=== PATIENT | male | born 1965 | race Caucasian/White ===

== ENCOUNTER 2017-11-17 07:36 | Day surgery (SDC) | payer BC ==
[2017-11-15 10:59] VITALS: BMI 30.6
[~2017-11-17 07:36] MED LIST: LACTATED RINGERS 1,000 ML IV SCH
[2017-11-17 08:07] VITALS: RESP 16; TEMP 98.3
[2017-11-17] MEDS ORDERED: PROPOFOL 10 MG/ML 20 ML VIAL IV ONE (08:09)
[2017-11-17] MEDS ORDERED: LIDOCAINE 1% 20 ML VIAL (10MG/ML) FOR IV START INTRADERMA ONE (08:10)
[2017-11-17] MEDS ORDERED: LACTATED RINGERS 1,000 ML IV ONE (08:10)
--- NOTE | 2017-11-17 08:30 | P.PCN ---
Date of Procedure: 11/17/17 Procedure(s) Performed: BRIEF HISTORY: Patient is a 52-year-old pleasant white male, scheduled for an elective colonoscopy as a part of evaluation of chronic diarrhea and lower abdominal pain for the last 1 month duration. He was treated with antibiotics for possible acute diverticulitis for a week and the diarrhea resolved. However continued to have persistent cramping in the lower abdominal area and hence he is scheduled for colonoscopy to evaluate further. PROCEDURE PERFORMED: Colonoscopy with random biopsies. PREOPERATIVE DIAGNOSIS: Lower abdominal pain/diarrhea of 4 months duration. IV sedation per Anesthesia. PROCEDURE: After informed consent was obtained, the patient, was brought into the endoscopy unit. IV sedation was administered by Anesthesia under continuous monitoring. Digital rectal examination was normal. Initially the Olympus CF- 160 flexible video colonoscope was then inserted in the rectum, gradually advanced into the cecum without any difficulty. Careful examination was performed as the scope was gradually being withdrawn. Ileocecal valve and the appendiceal orifice were visualized and appeared normal. Prep was excellent. Mucosa of the cecum, ascending colon, transverse colon, descending colon, sigmoid colon, and rectum appeared normal. Random biopsies were done from ascending and descending colon to rule out metastatic/plan for colitis. Retroflexion was performed in the rectum and no lesions were seen. The patient tolerated the procedure well. IMPRESSION: Normal-appearing colon from rectum to cecum with no evidence of colitis or colorectal neoplasia . RECOMMENDATIONS: Findings of this examination were discussed with the patient well as her family. He was advised to follow with the biopsy results. He was given a prescription for Bentyl 10 mg 3 times daily as needed for abdominal cramping and was advised to follow up in office in 3-4 weeks..
[2017-11-17 09:11] VITALS: BP 116/76; PULSE 54
== END 2017-11-17 09:40 | disposition home or self-care (01) ==
LOC: ORWHC2ENDO 07:36
PROVIDERS: ATTEND Internal Medicine Gastroenterology
DX: K52.9 Noninfective gastroenteritis and colitis, unspecified (principal); I25.10 Atherosclerotic heart disease of native coronary artery without angina pectoris; I10 Essential (primary) hypertension; E78.5 Hyperlipidemia, unspecified; K21.9 Gastro-esophageal reflux disease without esophagitis; Z79.02 Long term (current) use of antithrombotics/antiplatelets; Z79.1 Long term (current) use of non-steroidal anti-inflammatories (NSAID); Z95.5 Presence of coronary angioplasty implant and graft; Z79.899 Other long term (current) drug therapy; Z79.82 Long term (current) use of aspirin
CPT/HCPCS: 88305; 45380; J2704

== ENCOUNTER → 2019-07-17 | Outpatient (CLI) | payer BC ==
[2019-07-17 15:16] LABS: HCT 54.8 % (39.0-53.0); HGB 17.7 gm/dL (13.0-17.5); MCH 29.2 pg (25.0-35.0); MCHC 32.3 g/dL (31.0-37.0); MCV 90.5 fL (80.0-100.0); Platelet Count 278 k/uL (150-450); RBC 6.05 m/uL (4.30-5.90); RDW 13.4 % (11.5-15.5); WBC 8.5 k/uL (3.8-10.6)
[2019-07-17 15:38] LABS: African American GFR (CKD) >90 (>60 ml/min/1.73 sqM); Anion Gap 7 mmol/L; Blood Urea Nitrogen 19 mg/dL (9-20); Carbon Dioxide 29 mmol/L (22-30); Chloride 102 mmol/L (98-107); Non-African American GFR(CKD) >90 (>60 ml/min/1.73 sqM); Potassium 3.7 mmol/L (3.5-5.1); Sodium 138 mmol/L (137-145)
== END | disposition home or self-care (01) ==
LOC: LABPAT 14:45
PROVIDERS: ATTEND Internal Medicine Interventional Cardiology
DX: Z01.818 Encounter for other preprocedural examination (principal); U07.1 COVID-19; I25.10 Atherosclerotic heart disease of native coronary artery without angina pectoris
CPT/HCPCS: 80051; 82565; 84520; 85027; 36415; U0003

== ENCOUNTER → 2019-07-20 | Day surgery (SDC) | payer BC ==
[2019-07-18 15:40] VITALS: BMI 34.3
[~2019-07-20] MED LIST changes: +ADENOSINE 180 MG in SODIUM CHLORIDE 0.9% 30 ML IVP ONE; +ALPRAZolam 0.25 MG TAB PO PRN; +ALPRAZolam 0.5 MG TAB PO PRN; +ASPIRIN 325 MG TAB PO STA; +ASPIRIN 81 MG PO SCH; +ATORVASTATIN 80 MG TAB PO SCH; +ATORVASTATIN 80 MG TAB PO STA; +HEPARIN SODIUM 1,000 UN/ML (10ML VL) IV ONE; +HYDROCHLOROTHIAZIDE 25 MG TAB PO SCH; +IOPAMIDOL-370 125ML BTL INJ ONE; -LACTATED RINGERS 1,000 ML IV SCH; +LIDOCAINE 1% INJ 10MG/ML (20 ML MDV) SQ ONE; +LISINOPRIL 20 MG TAB PO SCH; +LORATADINE 10 MG TAB PO PRN; +METOPROLOL TARTRATE 25 MG TAB PO SCH; +MIDAZOLAM 2 MG/2 ML VIAL IV ONE; +NITROGLYCERIN SL TABS 0.4 MG TAB SUBLINGUAL PRN; +PANTOPRAZOLE 40 MG TABLET PO SCH; +RX INFO: IV CONTRAST WAS GIVEN 1 EACH MISC MISCELLANE PRN; +SODIUM CHLORIDE 0.9% 1,000 ML IV SCH; +SODIUM CHLORIDE 0.9% 1,000 ML in EMPTY BAG 1 BAG IV ONE; +VERAPAMIL SYRINGE (5 MG/10 ML) INTRAARTER ONE; +amLODIPine 5 MG TAB PO SCH; +fentaNYL (PF) 50 MCG/ML 2 ML AMP IV ONE
[2019-07-20 11:49] VITALS: TEMP 98.5
[2019-07-20] MEDS: NITROGLYCERIN 1000MCG/10ML SYRINGE INTRACORON ONE ×2 (12:37→12:49)
[2019-07-20 14:09] VITALS: RESP 16
[2019-07-20 15:03] VITALS: BP 131/73; PULSE 68
--- NOTE | 2019-07-20 15:21 | CC ---
CARDIAC CATHETERIZATION REPORT Mr. Murry is a 53-year-old male with a known history of coronary artery disease, status post percutaneous revascularization who recently has been complaining of occasional episode of chest discomfort, underwent a myocardial perfusion imaging that showed evidence of inferior wall ischemia. In view of that, recommendation made regarding cardiac catheterization. The procedures, risks, and complication were discussed with the patient who is in full understanding and agreement. PROCEDURE: Patient was brought to cath lab radiology technician in a fasting semi-sedated state after receiving fentanyl and Benadryl and achieving moderate conscious sedated state. Using Xylocaine anesthesia and Seldinger technique, a 6-Micronesian sheath was introduced in the right radial artery. Selective right and left coronary angiography performed using 5-Micronesian 3.5 bend right and left Shin catheter, multiple views of the coronary artery including hemiaxial views obtained. Following that a 5-Micronesian tight pigtail catheter introduced into the left ventricle and left ventricular end-diastolic pressure was calculated. Following that, a 6-Micronesian FL 3.5 guiding catheter introduced into the system and a [employer] pressure wire was introduced and fractional flow reserve and IFR were calculated. Following that, catheter and sheath were removed. Hemostasis was obtained with deployment of a TR band. There was no immediate complication. Patient is returned to his room in stable condition. Of note, the patient received 5000 units of intravenous heparin as well as intra-arterial verapamil. FINDINGS: LEFT MAIN: This is a short size vessel, bifurcating into left circumflex, left anterior descending artery. Left main coronary artery has no evidence of high-grade stenosis. LEFT ANTERIOR DESCENDING ARTERY: This is a large-sized vessel, reaching toward the apex with a wraparound apex segment giving rise to a moderately-sized diagonal branch proximally. The proximal segment of the left and descending artery has a 50% plaque. The stented segment beyond that is wide open with no evidence of in-stent restenosis. There is diffuse intimal disease throughout the mid segment of the LAD of about 30%- 40%, LEFT CIRCUMFLEX: This is a nondominant vessel, large in caliber, giving rise to two obtuse marginal branch of large caliber. The left circumflex has diffuse intimal disease throughout its course. It is calcified yet plaque up to mid 30%. RIGHT CORONARY ARTERY: Tis is a large dominant vessel, bifurcating distally into PDA and posterolateral segment and branches. The right coronary artery stented segment is patent. There is no evidence of significant restenosis. There is diffuse intimal disease of 30% throughout the vessel. LEFT VENTRICULOGRAM: Left ventriculogram was not performed. HEMODYNAMICS: There was no gradient across the aortic valve, the left ventricular end- diastolic pressure was 14 to 16 mmHg. PHYSIOLOGICAL MEASUREMENT: IFR was 1.11 and the FFR was 1.0 after infusion of adenosine per protocol intravenously. IMPRESSION: 1. Moderate disease in the proximal left anterior descending artery. 2. Patent stent in the LAD and the right coronary artery. 3. Mild triple-vessel coronary artery disease. RECOMMENDATION: In view of the fraction flow reserve measurement, I would recommend medical therapy. Those findings and recommendation were discussed with the patient and his family who are in full understanding and agreement. MMODL / IJN: [id number] /
--- NOTE | 2019-07-20 15:28 | LTR ---
DATE OF SERVICE: 07/20/2019 RE: Tong Murry Dear Dr. Sierra; I had the pleasure to perform cardiac catheterization on Mr. Murry at [facility] on July 20, 2019 and a full coy of the procedure note will be forwarded to you. In brief, he was found to have patent stent to the LAD and to the right coronary artery with moderate disease in the proximal left anterior descending artery that has progressed compared to 2014 and based on those findings, I proceeded to perform fractional flow reserve that was consistent with nonhemodynamic significant lesion and based on this finding I recommend continue medical therapy with aggressive risk modification that has been initiated. Thank you again for allowing me to participate in this patient's care. Please feel free to call for any questions. Sincerely yours, MD DAYRON Patten / RADHA: [id number] /
== END | disposition home or self-care (01) ==
LOC: CATHCVL 11:11
PROVIDERS: ATTEND Internal Medicine Interventional Cardiology
DX: I25.10 Atherosclerotic heart disease of native coronary artery without angina pectoris (principal); R94.39 Abnormal result of other cardiovascular function study; R07.89 Other chest pain; R06.09 Other forms of dyspnea; R60.9 Edema, unspecified; E78.2 Mixed hyperlipidemia; I10 Essential (primary) hypertension; E78.00 Pure hypercholesterolemia, unspecified; R01.1 Cardiac murmur, unspecified; Z79.891 Long term (current) use of opiate analgesic; Z79.1 Long term (current) use of non-steroidal anti-inflammatories (NSAID); Z79.899 Other long term (current) drug therapy; Z79.82 Long term (current) use of aspirin; Z79.02 Long term (current) use of antithrombotics/antiplatelets; Z79.890 Hormone replacement therapy; Z95.5 Presence of coronary angioplasty implant and graft; Z98.890 Other specified postprocedural states; M19.90 Unspecified osteoarthritis, unspecified site; Z87.891 Personal history of nicotine dependence; Z82.49 Family history of ischemic heart disease and other diseases of the circulatory system
CPT/HCPCS: 93571; 93458; C1769 ×2; C1887; C1894; J2250; J2001; J3010; J1644; J0153; Q9967

== ENCOUNTER 2020-01-01 16:08 | Emergency (ER) | payer BC, OTHER ==
[2020-01-01 16:26] VITALS: BP 145/94; PULSE 78; RESP 18; TEMP 98.2
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
--- NOTE | 2020-01-01 17:33 | XR ---
Result: History: Pain. Comparison: None available. Technique: 3 views of the right knee. Findings: No acute fracture or dislocation is seen. The visualized osseous structures are in anatomic alignmen t. There are moderate tricompartmental degenerative changes. Moderate patellar enthesopathy is seen. There is no significant knee joint effusion. Impression: No acute osseous abnormality.
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
== END 2020-01-01 18:38 | disposition home or self-care (01) ==
LOC: EC 16:08
DX: S16.1XXA Strain of muscle, fascia and tendon at neck level, initial encounter (principal); I10 Essential (primary) hypertension; I25.10 Atherosclerotic heart disease of native coronary artery without angina pectoris; K21.9 Gastro-esophageal reflux disease without esophagitis; E78.5 Hyperlipidemia, unspecified; G89.4 Chronic pain syndrome; Z79.890 Hormone replacement therapy; Z79.82 Long term (current) use of aspirin; Z79.1 Long term (current) use of non-steroidal anti-inflammatories (NSAID); Z79.899 Other long term (current) drug therapy; Z98.890 Other specified postprocedural states; V40.5XXA Car driver injured in collision with pedestrian or animal in traffic accident, initial encounter; Y92.410 Unspecified street and highway as the place of occurrence of the external cause
CPT/HCPCS: 70450; 72125; 99284

== ENCOUNTER → 2020-10-16 | Outpatient (CLI) | payer BC ==
--- NOTE | 2020-10-16 22:38 | CONS ---
CONSULTATION DATE OF SERVICE: 10/16/2020 This 54-year-old gentleman has been evaluated in Sleep Center for possible obstructive sleep apnea-hypopnea syndrome. HISTORY OF PRESENT ILLNESS/SLEEP-WAKE EVALUATION: The patient's usual sleep schedule is from 9:30 p.m. until 5:20 a.m. on weekdays and from 10 p.m. to 7 a.m. on weekends. Usually no significant problems with falling asleep. No TV in bedroom. He sleeps only on the side position because of the pain in his back on the back position. He does snore, and his believes that he stops breathing during sleep. He wakes up from sleep 4 times with nocturia. In the morning he wakes up tired. Usually, though, he does not take naps, but [place] Sleepiness Scale increased to 11. No history of hypnagogic hallucinations, sleep paralysis or cataplexy. PAST MEDICAL HISTORY: Positive for coronary artery disease, hypertension, cystic acne, hyperlipidemia, back problem with herniated disc. PAST SURGICAL HISTORY: Right knee surgery, two stent insertions to coronary arteries. MEDICATIONS: 1. Celebrex 200 mg twice a day. 2. Hydrochlorothiazide 25 mg once a day. 3. Metoprolol 25 mg twice a day. 4. Minocycline 100 mg once a day. 5. Crestor 40 mg once a day. 6. Lisinopril 20 mg twice a day. 7. Aspirin 81 mg once a day. 8. Amlodipine 5 mg once a day. 9. Percocet 10 mg up to 4 times a day. SOCIAL HISTORY: Positive for smoking in the past; quit 27 years ago. Alcohol consumption: None. FAMILY HISTORY: Stroke and cancer. REVIEW OF SYSTEMS: No fevers. No double vision. No recent chest pain. No shortness of breath. No abdominal pain. No bleeding episodes. No blood in the urine. No seizure episodes. Multiple awakenings from sleep. PHYSICAL EXAMINATION: GENERAL: Pleasant gentleman without distress. VITAL SIGNS: BP 134/83, HR 58, RR 16, height 6 feet 3 inches, weight 257.0, body mass index 32.2, temperature 97.5, oxygen saturation at room air 98%. HEENT: PERRLA, EOMI, evaluation of oropharynx showed tongue protrudes midline. Low position of soft palate; Mallampati IV. NECK: Supple, no JVD. Thyroid is not palpable. Neck is wide; 18 inches in circumference. LUNGS: Clear to percussion and to auscultation. Good air exchange. No wheezing or rhonchi. HEART: S1, S2 regular. No murmurs, gallops, or rubs. ABDOMEN: Soft and nontender. Bowel sounds are present. No organomegaly appreciated. EXTREMITIES: No clubbing or cyanosis. INSURANCE EXAMINING CLERK: Awake, alert, and oriented X3. Cranial nerves 2 to 7 intact. There is no fasciculation or atrophy. noted. No focal deficits observed. IMPRESSION: 1. Snoring, possibly witnessed episodes of stopped breathing during sleep, extremely low position of soft palate, Mallampati IV, wide neck; obstructive sleep apnea- hypopnea syndrome. 2. Erythrocytosis, according to patient. 3. Coronary artery disease, status post two stent insertions. 4. Hypertension. 5. History of cystic acne. 6. Hyperlipidemia. 7. Back problems secondary to herniated disc with pain. 8. Status post right knee surgery. 9. Obesity with body mass index 32.2. PLAN: 1. We will start with a home sleep apnea test for evaluation of patient's breathing during sleep. 2. Following plan after reviewing results of sleep study. If any central sleep apnea is present, CPAP/BiPAP titration will be necessary. 3. Watching and losing weight. 4. Sleep hygiene with regular time in bed for at least 8 hours. 5. No driving if feeling sleepiness. Thank you very much for referring this patient for consultation. Sincerely, Andriy Manzano MD, PhD, FAASM Diplomat of [place] [employer] Sleep Medicine Board of [place] [employer] Driver [facility] [place] MMODL / LIUN: [id number] /
== END ==
LOC: SLEEP 15:52
PROVIDERS: ATTEND Internal Medicine
DX: G47.33 Obstructive sleep apnea (adult) (pediatric) (principal); D75.1 Secondary polycythemia; E78.5 Hyperlipidemia, unspecified; M51.26 Other intervertebral disc displacement, lumbar region; I10 Essential (primary) hypertension; I25.10 Atherosclerotic heart disease of native coronary artery without angina pectoris; Z95.5 Presence of coronary angioplasty implant and graft; Z98.890 Other specified postprocedural states; E66.9 Obesity, unspecified; Z68.32 Body mass index [BMI] 32.0-32.9, adult; Z87.2 Personal history of diseases of the skin and subcutaneous tissue; Z79.82 Long term (current) use of aspirin; Z79.899 Other long term (current) drug therapy; Z87.891 Personal history of nicotine dependence
CPT/HCPCS: 99211

== ENCOUNTER → 2020-12-05 | Outpatient (CLI) | payer BC ==
--- NOTE | 2020-12-06 10:09 | SFUN ---
SLEEP CENTER FOLLOW UP NOTE DATE OF SERVICE: 12/05/2020 This 55-year-old gentleman has been followed in Sleep Center for treatment of obstructive sleep apnea-hypopnea syndrome. The patient had a home sleep apnea test which showed apnea-hypopnea index 13.5 and respiratory disturbance index 16.3 with oxygen desaturation to 89%. The patient was started on Auto PAP machine but has difficulties tolerating the machine; has difficulties with exhalation. I checked his CPAP unit. Range of the pressure is 5 to 12, RAMP 20 minutes, started at the pressure of 4. EPR is at 3. The patient used it 2 times with average time of usage 1.1 hour. Leak was 22 L/minute. [place] Sleepiness Scale increased to 11. MEDICATIONS: 1. Celebrex 200 mg twice a day. 2. Hydrochlorothiazide 25 mg once a day. 3. Metoprolol 25 mg twice a day. 4. Crestor 40 mg once a day. 5. Lisinopril 20 mg twice a day. 6. Aspirin 81 mg once a day. 7. Amlodipine 5 mg once a day. 8. Percocet 10 mg up to 4 times a day. PHYSICAL EXAMINATION: GENERAL: Pleasant patient in no distress. VITAL SIGNS: BP 118/79, HR 67, RR 15, temperature 97.4, oxygen saturation at room air 98%. HEENT: PERRLA, EOMI, evaluation of oropharynx showed tongue protrudes midline. Extremely low position of soft palate; Mallampati IV. NECK: Supple, no JVD. Thyroid is not palpable. LUNGS: Clear to percussion and to auscultation. Good air exchange. No wheezing or rhonchi. HEART: S1, S2 regular. No murmurs, gallops, or rubs. ABDOMEN: Soft and nontender. Bowel sounds are present. No organomegaly appreciated. EXTREMITIES: No clubbing or cyanosis. LANE ATTENDANT: Awake, alert, and oriented X3. Cranial nerves 2 to 7 intact. There is no fasciculation or atrophy. noted. No focal deficits observed. IMPRESSION: 1. Obstructive sleep apnea-hypopnea syndrome by results of home sleep apnea test. 2. The patient is not able to tolerate CPAP therapy, has difficulties with exhalation. Needs BiPAP titration. 3. Hypertension. 4. Erythrocytosis. 5. Coronary artery disease, status post 2 stent insertions. 6. History of cystic acne. 7. Hyperlipidemia. 8. Back problems secondary to herniated disk with pain. 9. Status post right knee surgery. PLAN: 1. Titration with CPAP again to document that he cannot tolerate it, and then BiPAP. 2. Losing weight. 3. Sleep hygiene with regular time in bed for at least 7-1/2 to 8 hours. 4. No driving if feeling sleepiness. Thank you very much for allowing me to participate in the management of your patient. Sincerely, Andriy Manzano MD, PhD, FAASM Diplomat of [place] [employer] Sleep Medicine Board of [place] [employer] Certified Medicine Aide [facility] [place] MMODL / IJN: [id number] /
== END ==
LOC: SLEEP 15:45
PROVIDERS: ATTEND Internal Medicine
DX: G47.33 Obstructive sleep apnea (adult) (pediatric) (principal); I10 Essential (primary) hypertension; D75.1 Secondary polycythemia; I25.10 Atherosclerotic heart disease of native coronary artery without angina pectoris; Z95.5 Presence of coronary angioplasty implant and graft; E78.5 Hyperlipidemia, unspecified; Z87.2 Personal history of diseases of the skin and subcutaneous tissue; M54.9 Dorsalgia, unspecified; Z98.890 Other specified postprocedural states; Z99.89 Dependence on other enabling machines and devices; Z79.82 Long term (current) use of aspirin; Z79.899 Other long term (current) drug therapy; Z87.891 Personal history of nicotine dependence

== ENCOUNTER → 2022-06-11 | Outpatient (CLI) | payer BC ==
[2022-06-12 01:54] LABS: Basophils # (A) 0.06 X 10*3/uL (0.00-0.10); Basophils % (A) 0.9 %; Eosinophils # (A) 0.24 X 10*3/uL (0.04-0.35); Eosinophils % (A) 3.7 %; HCT 44.3 % (39.6-50.0); HGB 14.6 g/dL (13.0-17.0); Immature Grans, Automated 0.2 %; Lymphocytes # (A) 1.95 X 10*3/uL (0.90-5.00); Lymphocytes % (A) 30.4 %; MCH 29.1 pg (27.0-32.0); MCV 88.4 fL (80.0-97.0); Mean Platelet Volume 10.8 fL (9.5-12.2); Monocytes # (A) 0.67 X 10*3/uL (0.20-1.00); Monocytes % (A) 10.4 %; NRBC Per 100 WBC 0 /100 WBCS (0.0-0.0); Neutrophils # (A) 3.49 X 10*3/uL (1.80-7.70); Neutrophils % (A) 54.4 %; Platelet Count 281 X 10*3/uL (140-440); RBC 5.01 X 10*6/uL (4.40-5.60); RDW 13.2 % (11.5-14.5); WBC 6.42 X 10*3/uL (4.50-10.00)
[2022-06-12 02:02] LABS: Anion Gap 11.8 mmol/L (10.00-18.00); Carbon Dioxide 25.2 mmol/L (20.0-27.5); Potassium 3.7 mmol/L (3.5-5.5)
== END | disposition home or self-care (01) ==
LOC: LABPAT 14:18
PROVIDERS: ATTEND Orthopaedic Surgery
DX: Z01.812 Encounter for preprocedural laboratory examination (principal); M23.91 Unspecified internal derangement of right knee
CPT/HCPCS: 36415; 80051; 85025

== ENCOUNTER → 2023-12-03 | Outpatient (CLI) | payer BC, OTHER ==
--- NOTE | 2023-12-03 10:31 | MR ---
EXAMINATION TYPE: MR lumbar spine wo/w con DATE OF EXAM: 12/03/2023 COMPARISON: 10/02/2013 HISTORY: Low back pain into jessica lower extremities TECHNIQUE: Multiplanar, multisequence images of the lumbar spine were acquired without and with 11 mL intravenou s Gadavist gadolinium contrast. Findings: The lumbar vertebral segments are normal in height and alignment. The disc spaces are well well preserved in height. There is no lumbar disc herniation. Secondary to hypertrophy of the facets, thickening of ligamentum flavum and circumferential disc bulg e there is mild spinal stenosis at the L2-3 and L3-4 levels and mild to moderate spinal stenosis at t he L4-5 level. The conus medullaris and cauda equina appear normal. There is mild to moderate neural foraminal stenosis at the L2-3 L3-4 levels on the left and moderate to severe neuroforaminal stenosis at the L4-5 level in the left.. IMPRESSION: 1. Lumbar spine segments is normal in height and alignment. 2. No lumbar disc herniation or significant degenerative disease. 3. Multilevel spinal stenosis and neural foraminal stenosis as described above. [facility], , 12/03/2023 10:29 AM
== END | disposition home or self-care (01) ==
LOC: RADMRIMAIN 05:40
PROVIDERS: ATTEND Anesthesiology Pain Medicine
CPT/HCPCS: 72158